=== PATIENT | female | born 1950 | race Two or more races ===

== ENCOUNTER 2019-09-19 06:00 | Day surgery (SDC) | payer OTHER ==
[~2019-09-19 06:00] MED LIST: FENOFIBRATE160 MG PO; PROTONIX40 MG PO; SIMVASTATIN20 MG PO; ZESTRIL2.5 MG PO
[2019-09-20] MEDS ORDERED: POLY119PG PO (10:40)
[2019-09-20] MEDS ORDERED: INTEGRA F CAPS1 EACH PO (10:45)
== END 2019-09-20 08:00 | disposition home or self-care (01) ==
LOC: CIR.AMB 06:00 → SURH 06:26 → CIR.AMB 09:15 → EDSTATUS 09:15 → CIR.AMB 09-20 06:00 → SURH 09-20 14:45 → CIR.AMB 09-21 08:00
PROVIDERS: ATTEND Surgery
DX: C18.0 Malignant neoplasm of cecum (principal)
CPT/HCPCS: 45380; 36561; C1751